=== PATIENT | female | born 1980 | race Caucasian/White ===

== ENCOUNTER 2020-11-04 09:49 | Inpatient (IN) | payer MEDICAID ==
[~2020-11-04] VITALS: Ht 160 cm; Wt 86.2 kg
[2020-11-04] MEDS ORDERED: LIDOCAINE HCL 1% 20ML VIAL (Pyxis) INJ INFIL SCH (10:30)
[2020-11-04] MEDS ORDERED: CARBOPROST TROMETHAMINE 250 MCG/ML AMPUL IM PRN (10:30)
[2020-11-04] MEDS ORDERED: METHYLERGONOVINE MALEATE 0.2 MG/ML IM PRN (10:30)
[2020-11-04] MEDS ORDERED: NALOXONE HCL 0.4 MG/ML 1ML VIAL IM PRN (10:30)
[2020-11-04] MEDS ORDERED: PREN1TAB78 MT (10:45)
[2020-11-04] MEDS ORDERED: FERR325T6 MT (10:45)
[2020-11-04] MEDS: LACTATED RINGERS 1,000 ML IV SCH (11:35)
[2020-11-04] MEDS: DEXT 5%/LR + PITOCIN 20UNITS/L 1,000 ML IV SCH (11:44)
[2020-11-04 13:47] LABS: BASOPHILS % 0.5 % (0.0-2.0); EOSINOPHILS % 7.2 % (0.0-5.0); HEMATOCRIT. 37.3 % (36.0-48.0); HEMOGLOBIN. 12.3 g/dL (12.0-16.0); MEAN CORPUSCULAR HEMOGLOBIN 29.7 pg (28.0-32.0); MEAN CORPUSCULAR VOLUME 90.1 fL (81.0-99.0); MEAN PLATELET VOLUME 7.8 fl (7.4-10.4); MONOCYTES % 4.1 % (2.0-8.0); NEUTROPHILS % 77.2 % (40.0-76.0); PLATELET 213 x1000/uL (130-400); RED BLOOD CELL COUNT 4.14 mill/uL (4.2-5.4); RED CELL DISTRIBUTION WIDTH 14.5 % (11.6-14.6)
[2020-11-04 13:56] LABS: INR 0.9; PARTIAL THROMBOPLASTIN TIME 28.2 sec (23.4-31.0); PROTHROMBIN TIME 10.2 sec (9.6-11.0)
[2020-11-04 14:10] LABS: CLARITY URINE CLEAR (CLEAR); COLOR URINE YELLOW (YELLOW); KETONES URINE NEGATIVE (NEGATIVE); LEUKOCYTE ESTERASE URINE NEGATIVE (NEGATIVE); NITRITE URINE NEGATIVE (NEGATIVE); OCCULT BLOOD URINE TRACE (NEGATIVE); PH URINE 7.5 (4.5-8.0); PROTEIN URINE NEGATIVE (NEGATIVE); SPECIFIC GRAVITY URINE 1.014 (1.005-1.030); UROBILINOGEN URINE 0.2 E.U./dL (0.2-1.0)
[2020-11-04 14:29] LABS: HEPATITIS B SURFACE ANTIGEN NEGATIVE
[2020-11-04 15:02] LABS: *AMPHETAMINES SCREEN URINE NEGATIVE (NEGATIVE); *BARBITURATES SCREEN URINE NEGATIVE (NEGATIVE); *BENZODIAZEPINES SCREEN URINE NEGATIVE (NEGATIVE); *COCAINE SCREEN URINE NEGATIVE (NEGATIVE)
[2020-11-04 15:03] LABS: CANNABINOID URINE SCREEN NEGATIVE (NEGATIVE); METHADONE URINE SCREEN NEGATIVE (NEGATIVE); OPIATES URINE SCREEN NEGATIVE (NEGATIVE); PHENCYCLIDINE URINE SCREEN NEGATIVE (NEGATIVE)
[2020-11-05] MEDS: LACTATED RINGERS 1,000 ML IV SCH (01:02)
[2020-11-05] MEDS: BUTORPHANOL TARTRATE 2 MG/ML VIAL IV PRN ×2 (01:17→03:15)
[2020-11-05] MEDS: DEXT 5%/LR + PITOCIN 20UNITS/L 1,000 ML IV SCH (03:45)
[2020-11-05] MEDS ORDERED: DEXT 5%/LR + PITOCIN 20UNITS/L 1,000 ML IV SCH (04:30)
[2020-11-05] MEDS ORDERED: METHYLERGONOVINE MALEATE 0.2 MG/ML IM PRN (04:30)
[2020-11-05] MEDS ORDERED: DIPHENHYDRAMINE 25MG CAPSULE PO PRN (04:30)
[2020-11-05] MEDS ORDERED: RHO(D) IMMUNE GLOBULIN 300 MCG/SYR IM PRN (04:30)
[2020-11-05] MEDS ORDERED: LANOLIN OINT 7GM TUBE TOP PRN (04:30)
[2020-11-05] MEDS ORDERED: IBUPROFEN 400MG TABLET PO PRN (04:30)
[2020-11-05 05:35] VITALS: BP 107/61
[2020-11-05 06:05] VITALS: BP 106/59
[2020-11-05 07:30] VITALS: BP 91/59
[2020-11-05] MEDS: IBUPROFEN 800MG TABLET PO PRN (09:23)
[2020-11-05] MEDS: PRENATAL VIT/FE FUMARATE/FA TABLET PO SCH (09:23)
[2020-11-05 15:18] VITALS: BP 91/56
[2020-11-05 20:00] VITALS: BP 102/57
[2020-11-06 03:15] VITALS: BP 93/55
[2020-11-06] MEDS ORDERED: IBUP-2028 PO (06:30)
[2020-11-06 06:46] LABS: BASOPHILS % 0.6 % (0.0-2.0); EOSINOPHILS % 9.8 % (0.0-5.0); HEMATOCRIT. 26.9 % (36.0-48.0); HEMOGLOBIN. 8.9 g/dL (12.0-16.0); MEAN CORPUSCULAR HEMOGLOBIN 30.1 pg (28.0-32.0); MEAN PLATELET VOLUME 7.7 fl (7.4-10.4); MONOCYTES % 6.1 % (2.0-8.0); NEUTROPHILS % 61.5 % (40.0-76.0); PLATELET 192 x1000/uL (130-400); RED BLOOD CELL COUNT 2.96 mill/uL (4.2-5.4); RED CELL DISTRIBUTION WIDTH 14.5 % (11.6-14.6)
[2020-11-06 07:15] VITALS: BP 93/54
[2020-11-06] MEDS: PRENATAL VIT/FE FUMARATE/FA TABLET PO SCH (08:21)
[2020-11-06] MEDS: IBUPROFEN 800MG TABLET PO PRN (08:21)
== END 2020-11-06 11:45 | disposition home or self-care (01) | DRG 560 ==
LOC: OBSVTOIN 09:49 → 8 EST LDRP 09:49 → 8EST 11-05 05:10
PROVIDERS: ADMIT Obstetrics & Gynecology; ATTEND Obstetrics & Gynecology
PROC: 10E0XZZ Delivery of Products of Conception, External Approach (ICD-10-PCS; principal; 2020-11-05)
PROC: 0UQMXZZ Repair Vulva, External Approach (ICD-10-PCS; 2020-11-05)
DX: O69.1XX0 Labor and delivery complicated by cord around neck, with compression, not applicable or unspecified (principal); O70.0 First degree perineal laceration during delivery; Z37.0 Single live birth; Z3A.40 40 weeks gestation of pregnancy; Z86.32 Personal history of gestational diabetes
CPT/HCPCS: 36415; 76805; 76818; 80305; 81003; 82947; 85025; 86592; 86703; 86762; 86850; 86900; 87340; 99281; G0378; J0595; J2590; J3490; J7120